=== PATIENT | female | born 1970 | race Hispanic/Latino ===

== ENCOUNTER 2017-08-02 14:18 | Outpatient (CLI) | payer OTHER ==
--- NOTE | 2017-08-02 18:05 | XRay Report ---
FINAL REPORT EXAM: XR KNEE 4+V LT HISTORY: LEFT KNEE PAIN TECHNIQUE: AP, tunnel, sunrise, and lateral standing views of the left knee PRIORS: None. FINDINGS: No acute fracture or dislocation is seen. The soft tissues are unremarkable with no evidence for suprapatellar joint effusion. The bony mineralization is normal. There is mild narrowing of the lateral joint compartment with spurring of the tibial spines. There is also mild narrowing the patellofemoral joint. IMPRESSION: No acute bony or soft tissue abnormality of the left knee. Mild narrowing of the lateral and patellofemoral joints.
== END 2017-08-02 14:19 | disposition home or self-care (01) ==
LOC: SPVIMAG 14:18
PROVIDERS: ATTEND Orthopaedic Surgery
DX: M25.562 Pain in left knee (principal)